=== PATIENT | male | born 1940 | race Caucasian/White ===

== ENCOUNTER 2025-04-23 15:45 | Outpatient (AMB) | payer MEDICARE, OTHER, SELFPAY ==
--- OUTSIDE RECORDS SUMMARY | 2025-04-23 15:47 | XMS_ITS | Continuity of Care Document ---
Author Organization [facility] Address [address] [place] [address] Phone [phone] Social History Type Date Description Comments Sex Unknown Medical Devices Description No Information Available Encounters Description No Information Available Assessments Description No Information Available Plan of Treatment No Information Available Functional Status Description No Information Available Mental Status Description No Information Available Referrals Description No Information Available
--- NOTE | 2025-04-23 15:58 | MHC.OFFWIV ---
Intake Vital Signs 04/23/25 16:07 Weight 189 lb BP 140/80 H Blood Pressure Location Rt brachial Position Sitting Pulse 71 Pulse Source Pulse Oximeter Pulse Oximetry (%) 98 Oxygen Delivery Method Room Air Intake Visit Reasons: EP-body rash Intake Note: Patient here for rash on arms, legs and feet which started about 3-4 days ago. Patient Tobacco Use Status: Never used Tobacco Allergies No Known Allergies Allergy (Verified 04/23/25 16:08) Do you need a note to return to daycare/school/sports/work: No HPI HPI Comments History of Present Illness Details 84 y/o Male patient who presents to the walk in clinic with c/o Rash on arms, legs and feet which started about 3-4 days ago. Pt is new to [facility] system - no records available for review during the visit. He has a PCP in [place]. Pmhx significant for HTN, T2DM, BPH, s/p Open Heart surgery with Pacemaker and HDL. Pt describes the rash as very itchy - it started on his Feet and legs, then spread to other parts of the body. Denies fevers, chills, nausea or vomiting. Denies changes to his diet, cosmetic products, soap or detergent products. He does admit to starting Lantus 3 weeks ago. [facility] Medical History (Updated 04/23/25 @ 17:00 by Zoila Guan NP) Rash and nonspecific skin eruption Social History Patient Tobacco Use Status: Never used Tobacco Review of Systems Const All systems reviewed & are unremarkable except as noted in HPI and below Physical Exam Vital Signs: Last Vital Signs Pulse 71 04/23/25 16:07 BP 140/80 H 04/23/25 16:07 Pulse Ox 98 04/23/25 16:07 Oxygen Delivery Method Room Air 04/23/25 16:07 Const General: no acute distress Orientation/consciousness: patient oriented x3 Resp Effort & Inspection: normal respiratory effort Cardio Heart sounds: S1 normal heart sound present and S2 normal heart sound present Skin Other: Purpuric Rash flat, reddish-purple spots scatted all over body - worse B/L Feet. General skin exam: crusts, dry skin, erythema, lichenification and purpura Full body images: 1. Purpuric Rash flat, reddish-purple spots scatted all over body - worse B/L Feet. 2. Purpuric Rash flat, reddish-purple spots scatted all over body - worse B/L Feet. Neuro General: patient oriented x3, gait normal and moves all extremities Psych Speech and movement: Normal speech and movement present Assessment & Plan Assessment & Plan (1) Rash and nonspecific skin eruption: Code(s): R21 - Rash and other nonspecific skin eruption Plan: DDx's: Henoch-Kentrell?nlein purpura (HSP) vs Doucas-Kapetanakis eczematid vs leukocytoclastic vasculitis vs ITP vs Allergic reaction vs Dermatitis vs Eczema. No clear etiology of the rash at this point - advised to f/u with PCP or ED visit. Coding Level of Care Code New Pt Level 4 (05572) Diagnoses Rash and nonspecific skin eruption R21 Time Spent (min) 20
[2025-04-23 16:07] VITALS: BP 140/80; PULSE 71; O2SAT 98
== END 2025-04-23 16:40 | disposition home or self-care (01) ==
PROVIDERS: Visit Provider Nurse Practitioner Family
DX: R21 Rash and other nonspecific skin eruption (principal)

== ENCOUNTER → 2025-04-23 15:45 | Outpatient (BNVA) | payer MEDICARE, OTHER, SELFPAY | PROVIDERS: Visit Provider Nurse Practitioner Family | DX: R21 Rash and other nonspecific skin eruption (principal) | CPT/HCPCS: 99202 ==